=== PATIENT | male | born 1955 | race Caucasian/White ===

== ENCOUNTER → 2017-03-17 | Outpatient (CLI) | payer BC ==
[2017-03-17 14:42] LABS: HCT 48.7 % (39.0-53.0); HGB 15.8 gm/dL (13.0-17.5); MCH 31.1 pg (25.0-35.0); MCHC 32.5 g/dL (31.0-37.0); MCV 95.7 fL (80.0-100.0); Mean Platelet Volume 6.5; Platelet Count 244 k/uL (150-450); RBC 5.09 m/uL (4.30-5.90); WBC 6.6 k/uL (3.8-10.6)
[2017-03-17 14:47] LABS: Appearance,Urine Clear (Clear); Bilirubin,Urine Negative (Negative); Blood,Urine Negative (Negative); Color,Urine Yellow; Glucose,Urine (UA) Negative (Negative); INR 0.9 (<1.2); Ketones,Urine Negative (Negative); Leukocyte Esterase,Urine Negative (Negative); Nitrite,Urine Negative (Negative); PH, Urine 7.5 (5.0-8.0); Protein,Urine Negative (Negative); Prothrombin Time 9.4 sec (9.0-12.0); Specific Gravity,Urine 1.016 (1.001-1.035); Urobilinogen,Urine <2.0 mg/dL (<2.0)
[2017-03-17 14:52] LABS: ALT 43 U/L (21-72); AST 25 U/L (17-59); Albumin 4.2 g/dL (3.5-5.0); Alkaline Phosphatase 52 U/L (38-126); Anion Gap 10 mmol/L; Blood Urea Nitrogen 17 mg/dL (9-20); Calcium 9.7 mg/dL (8.4-10.2); Carbon Dioxide 30 mmol/L (22-30); Chloride 102 mmol/L (98-107); Glucose 116 mg/dL (74-99); Potassium 4.4 mmol/L (3.5-5.1); Sodium 142 mmol/L (137-145); Total Bilirubin 0.3 mg/dL (0.2-1.3); Total Protein 7.1 g/dL (6.3-8.2)
== END | disposition home or self-care (01) ==
LOC: LABPAT 13:59
PROVIDERS: ATTEND Orthopaedic Surgery
DX: Z01.812 Encounter for preprocedural laboratory examination (principal); Z01.818 Encounter for other preprocedural examination
CPT/HCPCS: 80053; 81003; 85027; 85610; 85730; 87070; 93005

== ENCOUNTER → 2019-03-13 | Outpatient (CLI) | payer BC ==
[2019-03-13 15:16] LABS: ALT 44 U/L (4-49); AST 29 U/L (17-59); African American GFR (CKD) >90 (>60 ml/min/1.73 sqM); Albumin 4.3 g/dL (3.5-5.0); Alkaline Phosphatase 48 U/L (38-126); Anion Gap 8 mmol/L; Blood Urea Nitrogen 20 mg/dL (9-20); Calcium 9.6 mg/dL (8.4-10.2); Carbon Dioxide 29 mmol/L (22-30); Chloride 103 mmol/L (98-107); Glucose 102 mg/dL (74-99); Non-African American GFR(CKD) >90 (>60 ml/min/1.73 sqM); Potassium 4.5 mmol/L (3.5-5.1); Sodium 140 mmol/L (137-145); Total Bilirubin 0.5 mg/dL (0.2-1.3); Total Protein 7.2 g/dL (6.3-8.2)
[2019-03-13 15:26] LABS: HCT 47.8 % (39.0-53.0); HGB 15.5 gm/dL (13.0-17.5); MCH 31.6 pg (25.0-35.0); MCHC 32.5 g/dL (31.0-37.0); MCV 97.1 fL (80.0-100.0); Mean Platelet Volume 6.9; Platelet Count 210 k/uL (150-450); RBC 4.92 m/uL (4.30-5.90); RDW 12.7 % (11.5-15.5); WBC 5.8 k/uL (3.8-10.6)
[2019-03-13 15:29] LABS: Appearance,Urine Clear (Clear); Bilirubin,Urine Negative (Negative); Blood,Urine Negative (Negative); Color,Urine Yellow; Glucose,Urine (UA) Negative (Negative); Ketones,Urine Negative (Negative); Leukocyte Esterase,Urine Negative (Negative); Nitrite,Urine Negative (Negative); Protein,Urine Negative (Negative); Urobilinogen,Urine <2.0 mg/dL (<2.0)
[2019-03-13 15:30] LABS: INR 0.9 (<1.2); Prothrombin Time 9.5 sec (9.0-12.0)
== END | disposition home or self-care (01) ==
LOC: LABPAT 14:05
PROVIDERS: ATTEND Orthopaedic Surgery
DX: Z01.812 Encounter for preprocedural laboratory examination (principal)
CPT/HCPCS: 36415; 80053; 81003; 85027; 85610; 85730; 87070

== ENCOUNTER 2019-03-20 10:18 | Day surgery (SDC) | payer BC, OTHER ==
[2019-03-15 16:06] VITALS: BMI 38.0
[~2019-03-20 10:18] MED LIST: ACETAMINOPHEN TAB 500 MG TAB PO ONE; DEXAMETHASONE SOD PHOSPHATE 10 MG/ML 1 ML VIAL IV ONE; GABAPENTIN 300 MG CAP PO ONE; LIDOCAINE 1% 20 ML VIAL (10MG/ML) FOR IV START INTRADERMA PRN; MELOXICAM 7.5 MG TAB PO ONE; ONDANSETRON 4 MG/2 ML VIAL IVP ONE; ROPIVACAINE 246.25 MG, EPINEPHrine 0.5 MG, KETOROLAC 30 MG, cloNIDine HCL/PF 80 MCG, WA... MISCELLANE ONE; SCOPOLAMINE 1.5MG/72HR PATCH TRANSDERM ONE; TRANEXAMIC ACID 1,000 MG in SODIUM CHLORIDE 0.9% 100 ML IVPB ONE; fentaNYL (PF) 50 MCG/ML 2 ML AMP IV PRN
[2019-03-20] MEDS: LACTATED RINGERS 1,000 ML IV SCH (10:54)
[2019-03-20] MEDS ORDERED: HEPARIN SODIUM,PORCINE 10,000 UNIT/ML 1 ML VIAL ONE (12:15)
[2019-03-20] MEDS ORDERED: SODIUM CHLORIDE 0.9% IRRIG 1,000 ML BTL IRRIGATION ONE (12:15)
[2019-03-20] MEDS ORDERED: MIDAZOLAM 2 MG/2 ML VIAL ONE (12:15)
[2019-03-20] MEDS ORDERED: SODIUM CHLORIDE 0.9% 100 ML BAG ONE (12:15)
[2019-03-20] MEDS ORDERED: LIDOCAINE 1% INJ 10MG/ML (20 ML MDV) ONE (12:15)
[2019-03-20] MEDS ORDERED: fentaNYL (PF) 50 MCG/ML 2 ML AMP ONE (12:15)
[2019-03-20] MEDS ORDERED: TRANEXAMIC ACID 1,000 MG/10 ML VIAL ONE (12:15)
[2019-03-20] MEDS ORDERED: PROPOFOL 10 MG/ML 20 ML VIAL IV ONE (12:15)
[2019-03-20] MEDS ORDERED: ceFAZolin 1,000 MG VIAL IVPB ONE (12:39)
[2019-03-20] MEDS ORDERED: LACTATED RINGERS 1,000 ML IV ONE (13:14)
--- NOTE | 2019-03-20 14:01 | FL ---
Fluoroscopy HISTORY: Left hip arthroplasty 44 seconds fluoroscopy time supplied to the referring clinician. 2 intraoperative C-arm images docum ent the procedure. See dictated report from orthopedic surgery.
--- NOTE | 2019-03-20 14:01 | XR ---
Left hip HISTORY: Left hip total arthroplasty 2 intraoperative images document the procedure.
--- NOTE | 2019-03-20 14:17 | P.OP ---
Date of Procedure: 03/20/19 Preoperative Diagnosis: Severe osteoarthritis left hip Postoperative Diagnosis: Severe osteoarthritis left hip Procedure(s) Performed: Left total hip arthroplasty with a direct anterior approach Implants: Sanchez and nephew Polarstem size 3 standard Sanchez & Nephew R3, 3 hole acetabular shell, 54 mm Sanchez & Nephew reflection 6.5 mm cancellus screw, 20 mm 2 Sanchez & Nephew R3, XLPE 20 acetabular liner Sanchez & Nephew Oxinium femoral head 36 m, +4 All components were press-fit. The articulation is Oxinium on polyethylene. Anesthesia: spinal Surgeon: Kishore Hopkins Podiatric Surgeon #1: Carolina Reilly Estimated Blood Loss (ml): 550 (210 mL returned with Cell Saver) Pathology: other (Femoral head) Condition: stable Disposition: PACU Indications for Procedure: After failure of conservative treatment we discussed the surgical and nonsurgical treatment options at length. Patient wishes to proceed with a total hip arthroplasty with a direct anterior approach. Complications specific to this procedure were discussed at length, including but not limited to infection, leg length discrepancy, dislocation, and nerve injury. Patient is aware of all these complications and informed consent was obtained Operative Findings: The operative findings are consistent with severe osteoarthritis of the left hip Description of Procedure: Patient was seen and evaluated in the preoperative area, consent was reviewed, and the surgical site was marked with a skin marker. Patient was then brought to the operating room and given prophylactic antibiotics intravenously. 1 g of Tranexamic acid was also given. A spinal anesthetic was administered by the anesthesia department. The patient was then placed on the [place] table with the bony prominences well-padded. The hip area was then prepped and draped in usual sterile fashion. A universal timeout was then performed, which confirmed the patient's name, surgical site, ALLERGIES, and procedure being performed. Next the incision site was located at 1 cm distal and 1 cm lateral to the anterior superior iliac spine. The skin and subcutaneous tissues were sharply incised. Incision was carefully dissected down to the fascia overlying the tensor fascia juani muscle. This fascia was then incised in line with the incision. Next, using blunt finger dissection, the tensor fascia juani muscle was dissected off its investing fascia. The muscle was then carefully retracted laterally with a cobra retractor over the lateral neck of the femur. Next, the circumflex vessels were identified and cauterized using the AquaMantis device. The anterior hip capsule was then exposed. The capsule was then opened and an inverted T fashion. Cobra retractors were then placed intracapsularly. The proximal femur was then vis ualized. The femoral neck was then osteotomized appropriate level above the lesser trochanter. Small amount of traction was placed with the [place] table. A small wedge of bone was then removed from the remaining femoral head. Next, using a corkscrew femoral head was easily removed from the acetabulum. On gross visual inspection, the femoral head had complete loss of articular cartilage in multi ple periarticular osteophytes. Attention was then turned to the acetabulum. the acetabulum was exposed and any remaining labrum was excised. Sequential reaming of the acetabulum was performed using fluoroscopic guidance. When the appropriate size was reached, a trial was then placed. The position and fit of the trial was checked with fluoroscopy. The trial was then removed. Then, using fluoroscopic guidance, the final implant was impacted at 20 of anteversion and 40 of abduction, and fully seated in the acetabulum. 2 screws were then placed in the acetabulum. Again fluoroscopy was used to check position of the screws. Next, the liner was then impacted, with a 20 elevated liner located in the anterior superior quadrant. Component locking was confirmed. Attention was then directed to the femur. With the aid of the [place] table, the femur was externally rotated to approximately 130, extended, and abducted under the opposite leg. A side hook was then placed under the proximal femur, and the side hook elevator was used to elevate the proximal femur. Retractors were then placed. A capsular release was performed, as well as a release of the conjoined tendon, which afforded excellent visualization of the proximal femur. Next, a box osteotome was used to lateralize the proximal femur. A retail greeting card merchandiser was then used to locate the femoral canal. Sequential broaching was then performed with appropriate size which afforded excellent fixation in the proximal femur. A trial was then placed with appropriate head and neck, and the hip was gently reduced with the aid of the [place] table. Fluoroscopy was then used to check position of the components, as well as to ensure equal leg lengths. The hip was then gently dislocated and the trials were then removed. Final implants were then impacted and the hip was again reduced. Final fluoroscopic x-rays confirmed that the components were in anatomic position, as well as equal leg lengths. The hip was also taken through range of motion, and found to be stable. The hip was then copiously irrigated with antibiotic solution with pulsatile lavage. The hip was then irrigated with Irrisept solution. The soft tissues were then injected with a ropivacaine solution, which consisted of 246.25 mg of ropivacaine, 0.5 mg of epinephrine, 30 mg of Toradol, 80 g of clonidine, and 48.45 mL of sterile water, for a total of 100 mL of fluid injected. A second dose of 1 g of Tranexamic acid was also given. the fascia was then closed with 2-0 strata fix suture. The subcutaneous tissue was closed with 3-0 Vicryl. The subcuticular tissue was closed with 3-0 strata fix suture. The skin was then closed with Dermabond glue and a sterile silver dressing. The patient was then transferred to the recovery room in stable condi tion. The market research assistant ZEENAT Riggs was required due to the complexity of surgery, and the need for skilled surgical brace maker for positioning, draping, exposure, retraction, and closure of the wound.
[2019-03-20] MEDS ORDERED: HYDROmorphone 1 MG/ML 1 ML SYRINGE IVP PRN (14:41)
[2019-03-20] MEDS ORDERED: NALOXONE 0.4 MG/ML 1 ML VIAL IV PRN (14:41)
[2019-03-20] MEDS ORDERED: HYDROcodone/APAP 5-325MG 1 EACH TAB PO PRN ×2 (14:41)
[2019-03-20] MEDS ORDERED: HYDROmorphone 0.5 MG/0.5 ML SYRINGE IVP PRN ×2 (14:41)
[2019-03-20] MEDS ORDERED: ONDANSETRON 4 MG/2 ML VIAL IVP PRN (14:41)
[2019-03-20] MEDS ORDERED: hydrOXYzine PAMOATE 25 MG CAP PO PRN (14:41)
--- NOTE | 2019-03-20 15:26 | XR ---
EXAMINATION TYPE: XR Hip Limited LT DATE OF EXAM: 03/20/2019 CLINICAL HISTORY: Left hip pain and osteoarthritis. TECHNIQUE: Single AP portable view of left hip is obtained immediately postoperatively. COMPARISON: None. FINDINGS: Metallic hardware from left hip arthroplasty is seen and appears satisfactory in alignment and position. There is evidence of recent surgery with subcutaneous gas noted laterally. IMPRESSION: Metallic hardware from left hip arthroplasty is satisfactory in position.
[2019-03-20] MEDS: ASPIRIN 325 MG TAB PO SCH (21:00)
[2019-03-20] MEDS ORDERED: SENNOSIDES-DOCUSATE SODIUM 1 EACH TAB PO SCH (21:00)
[2019-03-20] MEDS ORDERED: LISINOPRIL 20 MG TAB PO SCH (21:15)
[2019-03-20] MEDS ORDERED: PRAVASTATIN SODIUM 40 MG TAB PO SCH (21:15)
--- NOTE | 2019-03-20 21:58 | P.CONS ---
History of Present Illness - Reason for Consult Consult date: 03/20/19 Medical management Requesting physician: Kishore Hopkins - Chief Complaint Left hip surgery - History of Present Illness Consultation: This is a pleasant 63-year-old patient Dr. lane yuen. Chronic stable medical conditions include hypertension, hyperlipidemia, osteoarthritis, kidney stones- patient had lithotripsy in the past and has had residue stones.. Today underwe nt left total hip osteoplasty. Postprocedure, did tolerate her diet. No nausea vomiting. No chest pain or shortness of breath. Pain is controlled. Sitting up in bed watching television. Review of systems: GEN.: None EYES: None HEENT: None NECK: None RESPIRATORY: None CARDIOVASCULAR: None GASTROINTESTINAL: None GENITOURINARY: None MUSCULOSKELETAL: Joint pains LYMPHATICS: None HEMATOLOGICAL: None PSYCHIATRY: None NEUROLOGICAL: None Past medical history to include: Hypertension, hyperlipidemia, osteoarthritis, kidney stones Social history: Smokes on and off for about 40 years, lives with his girlfriend, drives a high low at [employer] Physical examination: VITAL SIGNS: 97.5, 92, 18, 110/56, 92% on room air GENERAL: BMI 38.1, laying bed awake. EYES: Pupils equal. Conjunctiva normal. HEENT: External appearance of nose and ears normal, oral cavity grossly normal. NECK: JVD not raised; masses not palpable. HEART: First and second heart sounds are normal; no edema. LUNGS: Respiratory rate normal; clear to auscultation. ABDOMEN: Soft, nontender, liver spleen not palpable, no masses palpable. PSYCH: Alert and oriented x3; mood and affect normal. MUSCULOSKELETAL: Dressing over the left hip NEUROLOGICAL: Cranial nerves grossly intact; no facial asymmetry, power and sensation grossly intact. LYMPHATICS: No lymph nodes palpable in the axilla and neck INVESTIGATIONS, reviewed in the clinical context:: Lab work from March 13- White count 5.8 hemoglobin 15.5 platelets 210 potassium 4.5 creatinine 0.74 Assessment: -Left total hip arthroplasty -Essential hypertension -Hyperlipidemia -Kidney stones asymptomatic -Primary osteoarthritis -Obesity BMI 38.1 Plan: Home medications resumed. Pain control in place. Patient is on aspirin 325 twice a day for DT prophylaxis. Care was discussed with the patient question were answered. Thank you Dr. Hopkins Past Medical History Past Medical History: Hyperlipidemia, Hypertension, Osteoarthritis (OA) Additional Past Medical History / Comment(s): hx KIDNEY STONES History of Any Multi-Drug Resistant Organisms: None Reported Past Surgical History: Joint Replacement Additional Past Surgical History / Comment(s): RIGHT KNEE -ARTHROSCOPIC, LEFT KNEE ARTHROTOMY, TRK 03/29/17, colonoscopy Past Anesthesia/Blood Transfusion Reactions: No Reported Reaction Past Psychological History: No Psychological Hx Reported Smoking Status: Former smoker Past Alcohol Use History: Occasional Additional Past Alcohol Use History / Comment(s): STARTED SMOKING AT AGE 21 has SMOKEd on and off 1/2PPD, last smoked 03/08/19 Past Drug Use History: None Reported Additional Drug Use History / Comment(s): occasional marijuana edible use, has used CBD oil, instructed to hold 24 hrs prior to procedure - Past Family History Father Family Medical History: Cancer Medications and Allergies Home Medications Medication Instructions Recorded Confirmed Type Ibuprofen 800 mg PO Q8H PRN 03/15/19 03/15/19 History Lisinopril 20 mg PO HS 03/15/19 03/15/19 History Pravastatin Sodium [Pravachol] 40 mg PO HS 03/15/19 03/15/19 History Sildenafil Citrate 1 tab PO DIRECTED PRN 03/15/19 03/20/19 History Allergies Allergy/AdvReac Type Severity Reaction Status Date / Time codeine Allergy Chest Pain Verified 03/15/19 15:59 Physical Exam Vitals: Vital Signs Temp Pulse Resp BP Pulse Ox 03/20/19 19:08 97.4 F L 110 H 16 116/72 90 L 03/20/19 17:10 97.5 F L 92 18 110/56 92 L 03/20/19 16:34 71 16 109/66 95 03/20/19 16:00 75 16 104/62 95 03/20/19 15:30 75 16 128/62 95 03/20/19 15:15 73 16 121/70 95 03/20/19 15:00 76 16 124/67 92 L 03/20/19 14:45 77 16 120/69 95 03/20/19 14:31 97.2 F L 81 14 127/79 95 03/20/19 10:49 98.1 F 67 16 135/69 93 L Intake and Output 03/20/19 03/20/19 03/20/19 06:59 14:59 22:59 Intake Total 1200 Output Total 550 Balance 650 Intake: IV 1200 Output: Estimated Blood Loss 550 Other: Weight 113.6 kg 113.6 kg
[2019-03-21] MEDS: HYDROcodone/APAP 7.5-325MG 1 EACH TAB PO PRN ×3 (01:40→11:42)
[2019-03-21] MEDS: LACTATED RINGERS 1,000 ML IV SCH (05:17)
[2019-03-21 07:32] VITALS: BP 120/67; RESP 18; TEMP 97.7
[2019-03-21 07:37] VITALS: PULSE 91
[2019-03-21 07:56] LABS: Basophils % (A) 0 %; Eosinophils % (A) 0 %; HCT 39.3 % (39.0-53.0); HGB 13.2 gm/dL (13.0-17.5); Lymphocytes # (A) 1.4 k/uL (1.0-4.8); Lymphocytes % (A) 11 %; MCH 32.3 pg (25.0-35.0); MCHC 33.5 g/dL (31.0-37.0); MCV 96.4 fL (80.0-100.0); Monocytes # (A) 0.7 k/uL (0-1.0); Monocytes % (A) 5 %; Neutrophils % (A) 79 %; Platelet Count 197 k/uL (150-450); RBC 4.07 m/uL (4.30-5.90); RDW 12.8 % (11.5-15.5); WBC 12.6 k/uL (3.8-10.6)
[2019-03-21] MEDS: ASPIRIN 325 MG TAB PO SCH (08:41)
--- NOTE | 2019-03-21 12:18 | P.DS ---
Providers Expected date of discharge: 03/21/19 Attending physician: Kishore Hopkins Consults: 03/20/19 14:41 Consult Physician Routine Consulting Provider: Rehan Gonzalez Consult Reason/Comments: Medical management Do you want consulting provider notified?: Yes Primary care physician: Noe Mejias [facility] Course: This is a 63-year-old male with known history of degenerative arthritis of the left hip. The patient presented to the office for evaluation by Dr. Kishore Hopkins. After discussion and consideration patient elects to proceed with total hip arthroplasty. The patient is seen preoperatively by Dr. Mejias and was cleared for surgery. Patient is admitted to [facility] on 03/20/19 for total hip arthroplasty. The procedures performed without complication or sequelae. The patient is doing well postoperatively. Labs and vital signs are stable on post- operative day #1. Patient is examined bedside this morning with Dr. Hopkins. He states his pain is well-controlled and he is ambulating with a walker without issue. He complains of mild thigh pain. There are no complaints. Vital signs stable. On examination, the patient is sitting up in bed in no apparent distress. He is alert and orientated x3. On inspection of the left hip, there is a surgical dressing in place. Dressing is clean, dry, intact. There is minimal erythema. There is no drainage noted at this time. There is minimal soft tissue swelling to the hip and thigh. Patient has full foot and ankle motion without difficulty or pain. Neurovascular status to the right lower extremity is intact. Patient is discharged to home with home health services today pending medical clearance, in good condition. Plan - Discharge Summary Discharge Rx Participant: Yes New Discharge Prescriptions: New Aspirin 325 mg PO BID 30 Days #60 tab Sennosides-Docusate Sodium [Senokot-S] 2 tab PO HS PRN #30 tablet PRN Reason: Constipation HYDROcodone/APAP 7.5-325MG [[place] 7.5-325] 1 tab PO Q6H PRN 7 Days #30 tab PRN Reason: Pain Continue Sildenafil Citrate 1 tab PO DIRECTED PRN PRN Reason: erectile dysfunction Pravastatin Sodium [Pravachol] 40 mg PO HS Lisinopril 20 mg PO HS Discontinued Ibuprofen 800 mg PO Q8H PRN PRN Reason: Pain Discharge Medication List Lisinopril 20 mg PO HS 03/15/19 [History] Pravastatin Sodium [Pravachol] 40 mg PO HS 03/15/19 [History] Sildenafil Citrate 1 tab PO DIRECTED PRN 03/15/19 [History] Aspirin 325 mg PO BID 30 Days #60 tab 03/21/19 [Rx] HYDROcodone/APAP 7.5-325MG [[place] 7.5-325] 1 tab PO Q6H PRN 7 Days #30 tab 03/21/19 [Rx] Sennosides-Docusate Sodium [Senokot-S] 2 tab PO HS PRN #30 tablet 03/21/19 [Rx] Follow up Appointment(s)/Referral(s): [facility],Equipment [NON-STAFF] - As Needed (walker) Noe Mejias MD [Primary Care Provider] - 03/27/19 8:00 am [facility], [NON-STAFF] - As Needed Kishore Hopkins DO [Doctor of Osteopathic Medicine] - 04/02/19 2:20 pm Patient Instructions/Handouts: Pain Management After Surgery (DC), Anterior Hip Replacement (DC) Activity/Diet/Wound Care/Special Instructions: Weight bear as tolerated on your operative leg. Up with a walker. Leave operative dressing in place for 10 days. May shower over dressing. Take pain medications as prescribed. Take Senokot as prescribed. DVT prophylaxis for 35 days with Xarelto. Follow-up in the office in [address] Kishore Hopkins. Call the office with any questions or concerns, Discharge Disposition: HOME WITH HOME HEALTH SERVICES
--- NOTE | 2019-03-22 16:54 | P.PN ---
Progress Note - Text Progress Note Date: 03/21/19 - Chief Complaint Left hip surgery Interval history: This is a pleasant 63-year-old patient Dr. Mejias. Chronic stable medical conditions include hypertension, hyperlipidemia, osteoarthritis, kidney stones- patient had lithotripsy in the past and has had residue stones.. underwent left total hip osteoplasty. Today-sitting up. Feeling comfortable. Pain control. No chest or respiratory symptoms. Did work with therapy. Review of systems: Was done for constitutional, cardiovascular, GI, pulmonary. Musculoskeletal relevant finding as above Current medications reviewed in today's electronic records Physical examination: VITAL SIGNS: 97.7, 91, 18, 120/67, 91% on room air GENERAL: Sitting up, comfortable. EYES: Pupils equal. Conjunctiva normal. HEENT: External appearance of nose and ears normal, oral cavity grossly normal. NECK: JVD not raised; masses not palpable. HEART: First and second heart sounds are normal; no edema. LUNGS: Respiratory rate normal; clear to auscultation. ABDOMEN: Soft, nontender, liver spleen not palpable, no masses palpable. PSYCH: Alert and oriented x3; mood and affect normal. MUSCULOSKELETAL: Dressing over the left hip INVESTIGATIONS, reviewed in the clinical context:: White count 12.6 hemoglobin 13.2 Lab work from March 13- White count 5.8 hemoglobin 15.5 platelets 210 potassium 4.5 creatinine 0.74 Assessment: -Left total hip arthroplasty -Essential hypertension -Hyperlipidemia -Kidney stones asymptomatic -Primary osteoarthritis -Obesity BMI 38.1 -Leukocytosis likely reactive from surgery. evidence of infection Plan: Stable. Upon Discharge follow-up with PCP Thank you Dr. Hopkins
== END 2019-03-21 14:09 | disposition home health service (06) ==
LOC: OR 10:18 → EDSTATUS 11:30 → 4SSUR 14:31 → OR 03-21 14:09
PROVIDERS: ATTEND Orthopaedic Surgery
DX: M16.12 Unilateral primary osteoarthritis, left hip (principal); I10 Essential (primary) hypertension; E78.5 Hyperlipidemia, unspecified; N20.0 Calculus of kidney; E66.9 Obesity, unspecified; M10.9 Gout, unspecified; E78.00 Pure hypercholesterolemia, unspecified; F52.32 Male orgasmic disorder; E55.9 Vitamin D deficiency, unspecified; D72.829 Elevated white blood cell count, unspecified; Z87.442 Personal history of urinary calculi; Z79.899 Other long term (current) drug therapy; Z88.5 Allergy status to narcotic agent; Z87.891 Personal history of nicotine dependence; Z98.890 Other specified postprocedural states; Z87.01 Personal history of pneumonia (recurrent); Z97.3 Presence of spectacles and contact lenses; Z96.651 Presence of right artificial knee joint; Z68.38 Body mass index [BMI] 38.0-38.9, adult; Z80.7 Family history of other malignant neoplasms of lymphoid, hematopoietic and related tissues
CPT/HCPCS: 97161; 86891; 85025; 88300; 73501 ×2; 27130; C1776; J2250; J1644; J1100; J0690 ×3; J2405; J2001; J3010; J2704; 86850; 86900; 86901

== ENCOUNTER → 2021-03-31 | Outpatient (CLI) | payer BC ==
[2021-03-31 14:15] LABS: INR 0.9 (<1.2); Partial Thromboplastin Time 23.1 sec (22.0-30.0); Prothrombin Time 10.3 sec (9.0-12.0)
[2021-03-31 14:29] LABS: Appearance,Urine Clear (Clear); Bilirubin,Urine Negative (Negative); Blood,Urine Negative (Negative); Color,Urine Yellow; Glucose,Urine (UA) Negative (Negative); Ketones,Urine Negative (Negative); Leukocyte Esterase,Urine Negative (Negative); Nitrite,Urine Negative (Negative); PH, Urine 7.5 (5.0-8.0); Protein,Urine Trace (Negative); Specific Gravity,Urine 1.023 (1.001-1.035)
[2021-03-31 18:57] LABS: HCT 48.8 % (39.6-50.0); HGB 15.6 g/dL (13.0-17.0); MCH 30.7 pg (27.0-32.0); MCV 96.1 fL (80.0-97.0); Mean Platelet Volume 9.3 fL (9.5-12.2); NRBC Per 100 WBC 0 /100 WBCS (0.0-0.0); Platelet Count 225 X 10*3/uL (140-440); RBC 5.08 X 10*6/uL (4.40-5.60); RDW 13.2 % (11.5-14.5); WBC 6.89 X 10*3/uL (4.50-10.00)
[2021-03-31 19:06] LABS: African American GFR (CKD) 104.3 (60.0-200.0); Albumin 4.5 g/dL (3.8-4.9); Albumin/Globulin Ratio 1.6 (1.60-3.17); Anion Gap 11.7 mmol/L (10.00-18.00); BUN/Creat Ratio 22.83 Ratio (12.00-20.00); Blood Urea Nitrogen 20.5 mg/dL (9.0-27.0); Calcium 9.5 mg/dL (8.7-10.3); Carbon Dioxide 26.8 mmol/L (20.0-27.5); Globulin 2.8 g/dL (1.6-3.3); Potassium 4.1 mmol/L (3.5-5.5); Total Protein 7.3 g/dL (6.2-8.2)
== END | disposition home or self-care (01) ==
LOC: LABPAT 13:19
PROVIDERS: ATTEND Orthopaedic Surgery
DX: Z01.812 Encounter for preprocedural laboratory examination (principal); M17.12 Unilateral primary osteoarthritis, left knee
CPT/HCPCS: 36415; 80053; 81003; 85027; 85610; 85730; 87070

== ENCOUNTER 2021-04-06 07:25 | Day surgery (SDC) | payer BC, OTHER ==
[2021-04-03 12:27] VITALS: BMI 40.3
[~2021-04-06 07:25] MED LIST changes: -ACETAMINOPHEN TAB 500 MG TAB PO ONE; +ACETAMINOPHEN TAB 500 MG TAB PO PRN; -DEXAMETHASONE SOD PHOSPHATE 10 MG/ML 1 ML VIAL IV ONE; +DEXAMETHASONE SOD PHOSPHATE 4 MG/ML 1 ML VIAL IV ONE; -GABAPENTIN 300 MG CAP PO ONE; +GABAPENTIN 300 MG CAP PO PRN; +HYDROmorphone 0.5 MG/0.5 ML SYRINGE IVP PRN; +LIDOCAINE 1% (10MG/ML) FOR IV START INTRADERMA PRN; -LIDOCAINE 1% 20 ML VIAL (10MG/ML) FOR IV START INTRADERMA PRN; -MELOXICAM 7.5 MG TAB PO ONE; +MELOXICAM 7.5 MG TAB PO PRN; +MIDAZOLAM 2 MG/2 ML VIAL IV PRN; -ROPIVACAINE 246.25 MG, EPINEPHrine 0.5 MG, KETOROLAC 30 MG, cloNIDine HCL/PF 80 MCG, WA... MISCELLANE ONE; -SCOPOLAMINE 1.5MG/72HR PATCH TRANSDERM ONE; -TRANEXAMIC ACID 1,000 MG in SODIUM CHLORIDE 0.9% 100 ML IVPB ONE; +TRANEXAMIC ACID 1,000 MG in SODIUM CHLORIDE 0.9% 100 ML IVPB PRN; +ceFAZolin 3 GM in SODIUM CHLORIDE 0.9% 100 ML IVPB PRN; -fentaNYL (PF) 50 MCG/ML 2 ML AMP IV PRN
[2021-04-06] MEDS: LACTATED RINGERS 1,000 ML IV SCH (08:22)
[2021-04-06] MEDS ORDERED: MIDAZOLAM 2 MG/2 ML VIAL IVP ONE (08:30)
[2021-04-06] MEDS ORDERED: hydrOXYzine pamoate 25 MG CAP PO PRN (08:57)
[2021-04-06] MEDS ORDERED: HYDROmorphone 1 MG/ML 1 ML SYRINGE IVP PRN ×2 (08:57)
[2021-04-06] MEDS ORDERED: ONDANSETRON 4 MG/2 ML VIAL IVP PRN (08:57)
[2021-04-06] MEDS ORDERED: NALOXONE 0.4 MG/ML 1 ML VIAL IV PRN (08:57)
[2021-04-06] MEDS ORDERED: MAGNESIUM HYDROXIDE 2,400 MG/10 ML CUP PO PRN (08:57)
[2021-04-06] MEDS ORDERED: diazePAM 5 MG TAB PO PRN (08:57)
[2021-04-06] MEDS ORDERED: NA PHOS,M-B/NA PHOS,DI-BA 133 ML ENEMA RECTAL PRN (08:57)
[2021-04-06] MEDS ORDERED: HYDROmorphone 0.2 MG/1 ML SYRINGE IVP PRN (08:57)
[2021-04-06] MEDS ORDERED: bisacodyL 10 MG SUPP RECTAL PRN (08:57)
[2021-04-06] MEDS ORDERED: HYDROcodone/APAP 7.5-325MG 1 EACH TAB PO PRN (09:01)
[2021-04-06] MEDS ORDERED: ROPIVACAINE 5 MG/ML 30 ML VIAL ONE ×2 (09:08)
[2021-04-06] MEDS ORDERED: TRANEXAMIC ACID 1,000 MG/10 ML VIAL ONE (09:08)
[2021-04-06] MEDS ORDERED: ePHEDrine 50 MG/ML 1 ML VIAL ONE (09:08)
[2021-04-06] MEDS ORDERED: diphenhydrAMINE 50 MG/ML 1 ML VIAL ONE (09:08)
[2021-04-06] MEDS ORDERED: HYDROmorphone (PF) 1 MG/ML ONE (09:08)
[2021-04-06] MEDS ORDERED: KETAMINE 10 MG/ML 20 ML VIAL ONE (09:08)
[2021-04-06] MEDS ORDERED: MIDAZOLAM 2 MG/2 ML VIAL ONE (09:08)
[2021-04-06] MEDS ORDERED: SODIUM CHLORIDE 0.9% 100 ML BAG ONE (09:08)
[2021-04-06] MEDS ORDERED: PHENYLEPHRINE-0.9% NACL SYG 1,000 MCG/10 ML SYRINGE ONE (09:08)
[2021-04-06] MEDS ORDERED: DEXAMETHASONE SOD PHOSPHATE 4 MG/ML 1 ML VIAL ONE (09:08)
[2021-04-06] MEDS ORDERED: fentaNYL (PF) 50 MCG/ML 2 ML AMP ONE (09:08)
[2021-04-06] MEDS ORDERED: ceFAZolin 1,000 MG in SODIUM CHLORIDE 0.9% 1,000 ML IRRIGATION ONE (09:46)
[2021-04-06] MEDS ORDERED: LACTATED RINGERS 1,000 ML IV ONE (10:00)
--- NOTE | 2021-04-06 11:13 | P.OP ---
Date of Procedure: 04/06/21 Preoperative Diagnosis: Severe osteoarthritis left knee Postoperative Diagnosis: Severe osteoarthritis left knee Procedure(s) Performed: Left total knee arthroplasty Implants: Sancehz & Nephew Journey II CR Oxinium cruciate retaining femoral component size 8, left Sanhcez & Nephew Journey nonporous tibial baseplate size 7, left Sanchez & Nephew Journey II, XLPE Deep Dished articular insert, size 9 mm, Size 7- 8, left Sanchez [employer] Nephew Journey Natalie II resurfacing patellar component, oval, 32 mm All components were cemented using Palacos R bone cement The articulation is Oxinium on polyethylene Anesthesia: spinal Surgeon: Kishore Hopkins Gas Appliance Mechanic #1: Vikki Sol Estimated Blood Loss (ml): 50 Pathology: other (Bone and cartilage) Condition: stable Disposition: PACU Indications for Procedure: After failure of conservative treatment we discussed the surgical and nonsurgical treatment options at length. Patient wishes to proceed with a total knee arthroplasty. Complications specific to this procedure were discussed at length, including but not limited to infection, bleeding, stiffness, and nerve injury. Covid-19 was also discussed at length with the patient, and they are aware of the current policies and procedures. The patient was given the option of delaying surgery, but they elect to proceed knowing these risks. Patient is aware of all these complications and informed consent was obtained Operative Findings: The operative findings are consistent with severe osteoarthritis of the left knee Description of Procedure: Patient was seen in the preoperative area and the consent was reviewed and the operative site was marked with a skin marker. The patient verified the procedure and the operative site. An adductor canal pain catheter was placed by anesthesia in the preoperative area. The patient was then brought to the operating room and given preoperative antibiotics intravenously. A gram of transexamic acid was given intravenously. A spinal anesthetic was administered by the anesthesia department. A tourniquet was placed on the upper thigh and the lower extremity was prepped with chlorhexidine and draped in usual sterile fashion. A universal timeout was then performed which confirmed the patient's name, surgical site, ALLERGIES, and consent. The lower extremity was then exsanguinated and tourniquet was inflated to 250 mmHg. A standard anterior midline approach to the knee was performed. The skin and subcutaneous tissue were sharply dissected down to the patellar tendon. A medial parapatellar arthrotomy was then performed. The knee was then extended, the patellar was everted, and the knee was again flexed. The infra-patellar fat pad was removed in order to enhance exposure. The anterior horns of both menisci were excised, and a release was performed to the posterior medial aspect of the knee. On gross visual inspection, there was complete loss of articular cartilage in the medial and patellofemoral joint spaces. There was also significant cartilage damage in the lateral compartment. There were multiple periarticular osteophytes globally about the knee which were then removed with a Ronguer. The femoral canal was then opened with the 9.5 mm intramedullary drill. The 8 mm intramedullary shobha was then inserted into the femoral canal with the distal femoral cutting guide set for 5 of valgus. The distal femoral cutting block was then pinned in place. The intramedullary shobha was then removed, and the distal femur was then cut. The cutting block was then removed and the cut was checked for symmetry. The resected bone was then measured to confirm the appropriate distal femoral resection. Next, the sizing guide was then placed and set for 3 external rotation based off of the epicondylar axis and Whitesides line. Pins were then placed and the drill holes, and the femur was sized with the sizing stylus. The pins were then removed, and the sizing guide was then removed. The spikes of the femoral block was then placed into the predrilled holes, and malleted into place. Two 45 mm pins were then placed into the fixation holes on the cutting block. An karley wing was then used to ensure there would be no notching with the anterior cut. The anterior condyles were cut without notching. The anterior chord cut was then performed, followed by the posterior cut, posterior chamfer cut, and the anterior chamfer cut. The collateral ligaments were protected during the entire process. The cutting block was then removed. Any remaining bone and osteophytes were removed from t he femur with a Santoshinger. The femoral canal was plugged with autologous bone. Attention was then directed to the tibia. The remaining ACL was removed with a Ronguer, and the tibia was then gently subluxed forward with a large bent knee retractor. Any remaining menisci were excised. The posterior lateral corner was cauterized in order to coagulate the lateral geniculate artery. The extra medullary tibial cutting guide was then placed, set for the appropriate rotation, slope, and depth of resection. The proximal tibia cutting guide was then pinned in place. Proximal tibia was then cut and sized. The femoral trial was placed. A narrow saw blade was then used to remove the anterior intracondylar femoral bone. The CR notch trial was then placed. The tibial trial was placed with the appropriate-sized insert. The knee was able to fully extend and flex to 130 and was stable throughout all range of motion. The knee was then extended and the patella was everted. Patella was then measured, and then using an osteotomy guide, the patella was cut at the appropriate level. The patella was then measured and drilled and the patella trial was then placed. The knee was then taken through range of motion with the patella trial and the patella tracked normally using the no thumbs technique.. The knee was then extended patella trial was then removed and the patella was everted. Knee was then flexed and lug holes were drilled through the femoral trial and the femoral trial was then removed. The tibial was then re-exposed, and the tibial broach guide was then pinned in place after it was set for the appropriate rotation to allow for the most coverage without overhang. The tibia was then reamed and broached. The cut surfaces of bone were then irrigated with pulsatile lavage. The knee was also irrigated with Irrisept solution. The components were then opened, the cement was mixed, and the components were then cemented in place. The cement was allowed to harden with the knee in full extension. After the cemented hardened. The tourniquet was released, and hemostasis was obtained. A second gram of transexamic acid was given intravenously. The knee was again irrigated. The knee was again taken through range of motion and found to be stable throughout all range of motion of 0-130, and the patella tracked normally. The fascia was then closed with 0 Vicryl followed by #2 strata fix suture. The subcutaneous tissue was closed with 3-0 Vicryl and 3-0 strata fix. Exofin glue was used for the skin and placed with the knee in flexion. After the glue had dried, and Optafoam silver impregnated dressing was applied. The patient was then transferred to recovery room in stable condition. The manufacturing assistant ZEENAT Jackson was required due the complexity surgery and the need for a skilled assistant fitness manager. She assisted in positioning, draping, retraction, and closure of the wound.
[2021-04-06] MEDS ORDERED: ROPIVACAINE 0.2%-NS ON-Q PUMP 1,090 MG, EMPTY PAIN BALL 1 EACH MISCELLANE PRN (11:38)
--- NOTE | 2021-04-06 11:58 | XR ---
Limited left knee HISTORY: Status post left knee arthroplasty 2 views the left knee Patient is status post left knee arthroplasty. There is anatomic alignment. Lucency is present within the soft tissues. Findings are consistent with postop state. There is soft tissue swelling. 2 mm met allic densities present in the suprapatellar soft tissues anteriorly which is indeterminate. IMPRESSION: Orthopedic follow-up as described, possible foreign body.
[2021-04-06] MEDS: SODIUM CHLORIDE 0.9% 1,000 ML IV SCH ×2 (14:26→21:29)
[2021-04-06] MEDS: HYDROcodone/APAP 7.5-325MG 1 EACH TAB PO PRN (17:54)
--- NOTE | 2021-04-06 19:32 | P.CONS ---
History of Present Illness - Reason for Consult Consult date: 04/06/21 Medical management Requesting physician: Kishore Hopkins - Chief Complaint Left knee surgery - History of Present Illness This is a 65-year-old patient was chronic stable medical conditions include GERD, hypertension, hyperlipidemia, kidney stones. Patient is undergoing left total knee arthroplasty, early today by Dr. Hopkins. Has some pain in the knee. No nausea vomiting. Did tolerate his supper. Denies any cardiac history. Sitting up in bed watching television. Review of systems: GEN.: None EYES: None HEENT: None NECK: None RESPIRATORY: None CARDIOVASCULAR: None GASTROINTESTINAL: None GENITOURINARY: None MUSCULOSKELETAL: Joint pains LYMPHATICS: None HEMATOLOGICAL: None PSYCHIATRY: None NEUROLOGICAL: None Past medical history to include: GERD, hypertension, hyperlipidemia, osteoarthritis, kidney stones Social history: Smoke half a pack a day for over 40 years stopped 3 years ago. . Alcohol occasionally. Drives a high low Family history: Cancer Physical examination: VITAL SIGNS: 97.9, 103, 20, 115-61, 92% on 6 L GENERAL: BMI 42, decline in bed, awake, bit tired. EYES: Pupils equal. Conjunctiva normal. HEENT: External appearance of nose and ears normal, oral cavity grossly normal. NECK: JVD not raised; masses not palpable. HEART: First and second heart sounds are normal; no edema. LUNGS: Respiratory rate normal; clear to auscultation. ABDOMEN: Soft, nontender, liver spleen not palpable, no masses palpable. PSYCH: Alert and oriented x3; mood and affect normal. MUSCULOSKELETAL:No Clubbing/cyanosis;muscles-grossly intact. Evidence of OA especially in the hands. Left knee no dressing. NEUROLOGICAL: Cranial nerves grossly intact; no facial asymmetry, power and sensation grossly intact. LYMPHATICS: No lymph nodes palpable in the axilla and neck INVESTIGATIONS, reviewed in the clinical context: Blood work from March 31 2021: White count 6.8 hemoglobin 15.6 platelets 225 sodium 139 potassium 4.1 crea tinine 0.9 Assessment plan: -Left total knee arthroplasty [place] for pain control. Aspirin for DVT prophylaxis -Morbid obesity BMI 42 Weight loss measures follow-up with PCP -Essential hypertension Lisinopril 20 mg daily at bedtime -Hyperlipidemia Pravachol 40 mg daily at bedtime -GERD Prilosec mg a day -Primary osteoarthritis multiple joints, bilateral Pain medications Care was discussed with the patient. Questions answered. Activity as tolerated per orthopedics. Has been for DVT prophylaxis. Pain control in place. Care was discussed with the patient. Questions answered. Follow-up with PCP upon discharge Thank you Dr. Hopkins Past Medical History Past Medical History: GERD/Reflux, Hyperlipidemia, Hypertension, Osteoarthritis (OA), Pneumonia Additional Past Medical History / Comment(s): KIDNEY STONES, hx. of frequent pneumonia-last time approx. 2005 History of Any Multi-Drug Resistant Organisms: None Reported Past Surgical History: Joint Replacement, Orthopedic Surgery Additional Past Surgical History / Comment(s): RIGHT KNEE -ARTHROSCOPIC , LEFT KNEE ARTHROTOMY, right knee replaced, left hip replaced Past Anesthesia/Blood Transfusion Reactions: No Reported Reaction Past Psychological History: No Psychological Hx Reported Smoking Status: Former smoker Past Alcohol Use History: Occasional Additional Past Alcohol Use History / Comment(s): STARTED SMOKING AT AGE 21 SMOKES 1/2PPD, quit smoking 3 yrs. ago Past Drug Use History: None Reported - Past Family History Father Family Medical History: Cancer Medications and Allergies Home Medications Medication Instructions Recorded Confirmed Type Pravastatin Sodium [Pravachol] 40 mg PO HS 03/15/19 04/06/21 History lisinopriL 20 mg PO HS 03/15/19 04/06/21 History Acetaminophen/Diphenhydramine 1 tab PO HS PRN 04/03/21 04/06/21 History [Tylenol PM 500-25mg] Cholecalciferol (Vitamin D3) 250 mcg PO DAILY 04/03/21 04/06/21 History [Vitamin D3 (125 MCG = 5,000 IU)] Ibuprofen [Motrin] 800 mg PO Q6H PRN 04/03/21 04/06/21 History Levocetirizine Dihydrochloride 5 mg PO DAILY 04/03/21 04/06/21 History [Xyzal] Omeprazole [PriLOSEC] 40 mg PO DAILY 04/03/21 04/06/21 History Zinc 50 mg PO DAILY 04/03/21 04/06/21 History Aspirin 325 mg PO BID #60 tab 04/06/21 Rx HYDROcodone/APAP 7.5-325MG [[place] 1 - 2 tab PO Q6H PRN #32 tab 04/06/21 Rx 7.5-325] Ondansetron Odt [Zofran Odt] 1 tab PO Q8HR PRN #10 tab 04/06/21 Rx Sennosides [Senokot] 2 tab PO DAILY PRN #60 tablet 04/06/21 Rx Allergies Allergy/AdvReac Type Severity Reaction Status Date / Time codeine Allergy Chest Pain Verified 04/06/21 07:48 Physical Exam Vitals: Vital Signs Temp Pulse Pulse Resp BP Pulse Ox 04/06/21 15:14 97.9 F 103 H 20 115/61 92 L 04/06/21 13:45 100 16 116/68 95 04/06/21 13:15 102 H 16 116/67 92 L 04/06/21 12:40 99 17 140/69 97 04/06/21 12:25 97 17 140/69 95 04/06/21 12:10 99 16 123/67 96 04/06/21 11:55 96 16 146/70 96 04/06/21 11:40 99 16 148/71 97 04/06/21 11:25 98 16 132/72 98 04/06/21 11:14 97.5 F L 101 H 16 125/63 95 04/06/21 08:55 84 18 118/68 92 L 04/06/21 07:53 98.2 F 86 18 139/77 93 L Intake and Output 04/06/21 04/06/21 04/06/21 06:59 14:59 22:59 Intake Total 1401 Output Total 50 Balance 1351 Intake: IV 1401 Output: Estimated Blood Loss 50 Other: Weight 125.2 kg 125.2 kg
[2021-04-06] MEDS ORDERED: PRAVASTATIN SODIUM 40 MG TAB PO SCH (21:00)
[2021-04-06] MEDS ORDERED: SENNOSIDES-DOCUSATE SODIUM 1 EACH TAB PO SCH (21:00)
[2021-04-06] MEDS ORDERED: lisinopriL 20 MG TAB PO SCH (21:00)
[2021-04-06] MEDS: ASPIRIN 325 MG TAB PO SCH (21:29)
[2021-04-07] MEDS: HYDROcodone/APAP 7.5-325MG 1 EACH TAB PO PRN ×2 (04:35→11:52)
[2021-04-07] MEDS: LACTATED RINGERS 1,000 ML IV SCH (07:05)
[2021-04-07] MEDS ORDERED: PANTOPRAZOLE 40 MG TABLET PO SCH (07:30)
[2021-04-07 07:57] VITALS: BP 123/70; PULSE 85; TEMP 97.8
--- NOTE | 2021-04-07 08:11 | P.PN ---
Progress Note - Text Progress Note Date: 04/07/21 Patient seen and examined POD 1 s/p left knee replacement with adductor canal catheter placed for post operative pain management. Patient pain well controlled today with catheter and oral medicine. Continue infusion at current rate. Patient able to ambulate with assistance. Patient denies ESPINAL, F/C, N/V. Site is clean and dry. Acceptable for discharge home. All questions answered.
[2021-04-07] MEDS: ASPIRIN 325 MG TAB PO SCH (08:52)
[2021-04-07] MEDS: SODIUM CHLORIDE 0.9% 1,000 ML IV SCH (08:53)
[2021-04-07] MEDS: LORATADINE 10 MG TAB PO SCH ×2 (08:53→08:58)
[2021-04-07] MEDS ORDERED: CHOLECALCIFEROL 125 MCG (5000 IU) TABLET PO SCH (09:00)
[2021-04-07] MEDS ORDERED: MELOXICAM 7.5 MG TAB PO SCH (09:00)
[2021-04-07] MEDS ORDERED: ZINC SULFATE 220 MG CAP PO SCH (09:00)
--- NOTE | 2021-04-07 09:01 | P.DS ---
Providers Expected date of discharge: 04/07/21 Attending physician: Kishore Hopkins Consults: 04/06/21 08:57 Consult Physician Routine Consulting Provider: Rehan Gonzalez Consult Reason/Comments: medical management Do you want consulting provider notified?: Yes Primary care physician: Noe Chicas - Discharge Diagnosis(es) (1) Osteoarthritis of left knee Current Visit: Yes Status: Acute (2) Status post total left knee replacement Current Visit: Yes Status: Acute Hospital Course: This is a 65-year-old male with known history of degenerative arthritis of the left knee. The patient presented for evaluation as an outpatient. After discussion and consideration patient elects to proceed with total knee arthroplasty. The patient is seen preoperatively by Dr. Hopkins and medically cleared for surgery by their primary care physician. Patient is admitted to [facility] on 04/06/2021 for total knee arthroplasty. The procedure is performed without complication or sequelae. The patient is doing well postoperatively. Labs and vital signs are stable on day of discharge. On day of discharge patient's knee incision is healing well. There is minimal erythema. There is no drainage noted at this time. There is minimal soft tissue swelling to the knee. Patient has full foot and ankle motion without difficulty or pain. Calf is soft and nontender to palpation. Neurovascular status to the left lower extremity is intact. Patient is discharged home in good condition. Opioid start talking form is reviewed and signed. Please see med rec for accurate list of home medications. Plan - Discharge Summary Discharge Rx Participant: Yes New Discharge Prescriptions: New Aspirin 325 mg PO BID #60 tab HYDROcodone/APAP 7.5-325MG [[place] 7.5-325] 1 - 2 tab PO Q6H PRN #32 tab PRN Reason: Pain Ondansetron Odt [Zofran Odt] 1 tab PO Q8HR PRN #10 tab PRN Reason: Nausea Sennosides [Senokot] 2 tab PO DAILY PRN #60 tablet PRN Reason: Constipation No Action Pravastatin Sodium [Pravachol] 40 mg PO HS lisinopriL 20 mg PO HS Levocetirizine Dihydrochloride [Xyzal] 5 mg PO DAILY Ibuprofen [Motrin] 800 mg PO Q6H PRN PRN Reason: Pain Cholecalciferol (Vitamin D3) [Vitamin D3 (125 MCG = 5,000 IU)] 250 mcg PO DAILY Zinc 50 mg PO DAILY Omeprazole [PriLOSEC] 40 mg PO DAILY Acetaminophen/Diphenhydramine [Tylenol PM 500-25mg] 1 tab PO HS PRN PRN Reason: Insomnia Discharge Medication List Pravastatin Sodium [Pravachol] 40 mg PO HS 03/15/19 [History] lisinopriL 20 mg PO HS 03/15/19 [History] Acetaminophen/Diphenhydramine [Tylenol PM 500-25mg] 1 tab PO HS PRN 04/03/21 [History] Cholecalciferol (Vitamin D3) [Vitamin D3 (125 MCG = 5,000 IU)] 250 mcg PO DAILY 04/03/21 [History] Ibuprofen [Motrin] 800 mg PO Q6H PRN 04/03/21 [History] Levocetirizine Dihydrochloride [Xyzal] 5 mg PO DAILY 04/03/21 [History] Omeprazole [PriLOSEC] 40 mg PO DAILY 04/03/21 [History] Zinc 50 mg PO DAILY 04/03/21 [History] Aspirin 325 mg PO BID #60 tab 04/06/21 [Rx] HYDROcodone/APAP 7.5-325MG [[place] 7.5-325] 1 - 2 tab PO Q6H PRN #32 tab 04/06/21 [Rx] Ondansetron Odt [Zofran Odt] 1 tab PO Q8HR PRN #10 tab 04/06/21 [Rx] Sennosides [Senokot] 2 tab PO DAILY PRN #60 tablet 04/06/21 [Rx] Follow up Appointment(s)/Referral(s): [facility],Equipment [NON-STAFF] - (*Please call [facility] once home to arrange delivery of the Continuous Passive Motion (CPM) machine.) Noe Chicas MD [Primary Care Provider] - 2 Weeks (YOU WILL NEED TO SCHEDULE AN APPOINTMENT WITH DR. CHICAS TO HAVE A SLEEP STUDY DONE (OXYGEN LEVEL DIPPED TO 68% WITH NASAL CANULA ON IN RECOVERY WHILE WAITING FOR A BED)) [facility], [NON-STAFF] - ([facility] will call you to schedule your in home physical therapy visits. ) Kishore Hopkins DO [Doctor of Osteopathic Medicine] - 2 Weeks Activity/Diet/Wound Care/Special Instructions: Weightbearing as tolerated with a walker. CPM 5-6h daily as tolerated. Leave dressing intact. Dressing may be removed by home care nurse or by patient in 7 days. Then change dressing twice daily until follow up. May shower with initial dressing intact and after removal. If dressing become saturated, please remove. Recommend use of compression stockings daily until follow up to help prevent swelling and blood clots. May remove at night before sleeping. Please take aspirin 325mg twice daily for 30 days to prevent blood clots. Please follow up with [facility] and call with any questions or concerns, . Discharge Disposition: HOME WITH HOME HEALTH SERVICES
[2021-04-07 09:18] LABS: Basophils # (A) 0.02 X 10*3/uL (0.00-0.10); Basophils % (A) 0.2 %; Eosinophils # (A) 0.01 X 10*3/uL (0.04-0.35); Eosinophils % (A) 0.1 %; HCT 41.7 % (39.6-50.0); HGB 12.9 g/dL (13.0-17.0); Immature Grans, Automated 0.3 %; Lymphocytes % (A) 11.9 %; MCH 31.2 pg (27.0-32.0); MCHC 30.9 g/dL (32.0-37.0); Mean Platelet Volume 9.4 fL (9.5-12.2); Monocytes # (A) 0.67 X 10*3/uL (0.20-1.00); Monocytes % (A) 6.6 %; NRBC Per 100 WBC 0 /100 WBCS (0.0-0.0); Neutrophils # (A) 8.19 X 10*3/uL (1.80-7.70); Neutrophils % (A) 80.9 %; Platelet Count 189 X 10*3/uL (140-440); RBC 4.13 X 10*6/uL (4.40-5.60); RDW 13.3 % (11.5-14.5); WBC 10.12 X 10*3/uL (4.50-10.00)
[2021-04-07 10:55] VITALS: RESP 18
--- NOTE | 2021-04-07 14:31 | P.ANPRN ---
Procedure Note - Anesthesia - Nerve Block Performed Left Adductor Canal Infusion Time Out Performed: Yes Date of Procedure: 04/06/21 Procedure Start Time: : Procedure Stop Time: :36 Location of Patient: PreOp Indication: Acute Post-Operative Pain, Requested by Surgeon Sedation Type: Sedate with meaningful contact maintained Preparation: Sterile Prep, Sterile Dressing Position: Supine Catheter: Indwelling Needle Types: Pajunk Needle Gauge: 21 Ultrasound used to visualize needle placement: Yes Ultrasound used to observe medication spread: Yes Blood Aspirated: No Pain Paresthesia on Injection Noted: No Resistance on Injection: Normal Image Stored and Saved: Yes Events: Uneventful and Well Tolerated (ropi .5% 20cc)
--- NOTE | 2021-04-07 14:32 | P.ANPRN ---
Procedure Note - Anesthesia - Nerve Block Performed Left iPack Single Time Out Performed: Yes Date of Procedure: 04/06/21 Procedure Start Time: 08:37 Procedure Stop Time: 08:41 Location of Patient: PreOp Indication: Acute Post-Operative Pain, Requested by Surgeon Sedation Type: Sedate with meaningful contact maintained Preparation: Sterile Prep Position: Supine Needle Types: Pajunk Needle Gauge: 21 Ultrasound used to visualize needle placement: Yes Ultrasound used to observe medication spread: Yes Blood Aspirated: No Pain Paresthesia on Injection Noted: No Resistance on Injection: Normal Image Stored and Saved: Yes Events: Uneventful and Well Tolerated (ropi .5% 25cc plus dexamethasone 4mg)
--- NOTE | 2021-04-07 22:34 | P.PN ---
Progress Note - Text Progress Note Date: 04/07/21 - Chief Complaint Left knee surgery This is a 65-year-old patient was chronic stable medical conditions include GERD, hypertension, hyperlipidemia, kidney stones. Patient is undergoing left total knee arthroplasty, early today by Dr. Hopkins. Has some pain in the knee. No nausea vomiting. Did tolerate his supper. Denies any cardiac history. Sitting up in bed watching television. April 07: Pain reasonably controlled. No nausea vomiting. Did tolerate her diet . Did ablate. No chest pain or shortness of breath Current medications reviewed Past medical history to include: GERD, hypertension, hyperlipidemia, osteoarthritis, kidney stones Social history: Smoke half a pack a day for over 40 years stopped 3 years ago. . Alcohol occasionally. Drives a high low Family history: Cancer Physical examination: VITAL SIGNS: 97.8, 85, 17, 123/70, 90% on 4 L GENERAL: Sitting up, comfortable EYES: Pupils equal. Conjunctiva normal. HEENT: External appearance of nose and ears normal, oral cavity grossly normal. NECK: JVD not raised; masses not palpable. HEART: First and second heart sounds are normal; no edema. LUNGS: Respiratory rate normal; clear to auscultation. ABDOMEN: Soft, nontender, liver spleen not palpable, no masses palpable. PSYCH: Alert and oriented x3; mood and affect normal. MUSCULOSKELETAL:No Clubbing/cyanosis;muscles-grossly intact. Evidence of OA especially in the hands. Left knee no dressing. INVESTIGATIONS, reviewed in the clinical context: April 07: White count 10.1 hemoglobin 12.9 Blood work from March 31 2021: White count 6.8 hemoglobin 15.6 platelets 225 sodium 139 potassium 4.1 creatinine 0.9 Assessment plan: -Left total knee arthroplasty [place] for pain control. Aspirin for DVT prophylaxis -Leukocytosis, reactive from surgery. No clinical evidence of infection -Mild acute postprocedure blood loss anemia as expected from surgery -Morbid obesity BMI 42 Weight loss measures follow-up with PCP -Essential hypertension Lisinopril 20 mg daily at bedtime -Hyperlipidemia Pravachol 40 mg daily at bedtime -GERD Prilosec mg a day -Primary osteoarthritis multiple joints, bilateral Pain medications Care was discussed with the patient. Follow up with his PCP upon discharge. Thank you Dr. Hopkins
== END 2021-04-07 14:20 | disposition home health service (06) ==
LOC: OR 07:25 → 4SSUR 11:10 → OR 04-07 14:20
PROVIDERS: ATTEND Orthopaedic Surgery
DX: M17.12 Unilateral primary osteoarthritis, left knee (principal); I10 Essential (primary) hypertension; E78.5 Hyperlipidemia, unspecified; R26.81 Unsteadiness on feet; Z97.3 Presence of spectacles and contact lenses; R51.9 Headache, unspecified; E55.9 Vitamin D deficiency, unspecified; E78.00 Pure hypercholesterolemia, unspecified; M10.9 Gout, unspecified; G47.33 Obstructive sleep apnea (adult) (pediatric); E66.9 Obesity, unspecified; Z68.41 Body mass index [BMI] 40.0-44.9, adult; K21.9 Gastro-esophageal reflux disease without esophagitis; N52.9 Male erectile dysfunction, unspecified; R35.1 Nocturia; Z96.651 Presence of right artificial knee joint; Z96.642 Presence of left artificial hip joint; Z98.890 Other specified postprocedural states; Z82.49 Family history of ischemic heart disease and other diseases of the circulatory system; Z80.7 Family history of other malignant neoplasms of lymphoid, hematopoietic and related tissues; Z87.891 Personal history of nicotine dependence; Z79.899 Other long term (current) drug therapy; Z88.5 Allergy status to narcotic agent
CPT/HCPCS: 97161; 64999; 64448; 76942; 85025; 88300; 73560; 27447; C1713; C1776; J2250; J1200; J1100; J0690 ×2; J2405; J3010; J1170 ×2; J2795 ×2; J2370